=== PATIENT | male | born 1975 | race Caucasian/White ===

== ENCOUNTER 2017-09-05 16:02 | Emergency (ER) | payer SELFPAY ==
[2017-09-05 16:25] VITALS: BP 144/93; PULSE 71; TEMP 98.8; BMI 34.7
--- NOTE | 2017-09-05 16:40 | PDOC ---
History of Present Illness - History of Present Illness Initial Comments: 09/05/17 16:57 42 yo M with no significant pmh who presents with R testicular pain. Patient reports 1 week of worsening, sharp, non radiating, right testicular pain. Worse with movement. Denies back pain, flank pain, dsyuria, hematuria, urinary complaints, urethral discharge, fevers/chills, N/V, abdominal pain. Denies CP, SOB, diarrhea, consitpation Denies testicular trauma. Currently sexually active with . Denies h/o STIs. <Gustavo Singleton - Last Filed: 09/05/17 18:38> <Oliva Caraballo - Last Filed: 09/05/17 19:43> - General Chief Complaint: Pain, Acute Stated Complaint: ABD PAIN Time Seen by Provider: 09/05/17 16:34 Past History - Past Medical History COPD: No - Immunization History Immunization Up to Date: Yes - Suicide/Smoking/Psychosocial Hx Smoking History: Never smoked Have you smoked in the past 12 months: No Information on smoking cessation initiated: No Hx Alcohol Use: No Drug/Substance Use Hx: No Substance Use Type: None <ManiGustavo - Last Filed: 09/05/17 18:38> <Oliva Caraballo - Last Filed: 09/05/17 19:43> - Past Medical History Allergies/Adverse Reactions: Allergies Allergy/AdvReac Type Severity Reaction Status Date / Time No Known Allergies Allergy Verified 09/05/17 16:12 Home Medications: Ambulatory Orders Sulfamethoxazole/Trimethoprim [Bactrim Ds Tablet] 1 each PO BID #14 tablet 09/05 Review of Systems - Review of Systems Comments:: 09/05/17 16:35 GENERAL/CONSTITUTIONAL: No fever or chills. No weakness. HEAD, EYES, EARS, NOSE AND THROAT: No change in vision. No ear pain or discharge. No sore throat.- CARDIOVASCULAR: No chest pain or shortness of breath RESPIRATORY: No cough, wheezing, or hemoptysis. GASTROINTESTINAL: No nausea, vomiting, diarrhea or constipation. GENITOURINARY: + Testicular pain. No dysuria, frequency, or change in urination. MUSCULOSKELETAL: No joint or muscle swelling or pain. No neck or back pain. SKIN: No rash NEUROLOGIC: No headache, vertigo, loss of consciousness, or change in strength/ sensation. ENDOCRINE: No increased thirst. No abnormal weight change HEMATOLOGIC/LYMPHATIC: No anemia, easy bleeding, or history of blood clots. ALLERGIC/IMMUNOLOGIC: No hives or skin allergy. <Gustavo Singleton - Last Filed: 09/05/17 18:38> *Physical Exam - Vital Signs Last Vital Signs Temp Pulse Resp BP Pulse Ox 98.8 F 71 17 144/93 96 09/05/17 16:12 09/05/17 16:12 09/05/17 16:12 09/05/17 16:12 09/05/17 16:12 - Physical Exam Comments: 09/05/17 16:35 GENERAL: Awake, alert, and fully oriented, in no acute distress HEAD: No signs of trauma, normocephalic, atraumatic EYES: PERRLA, EOMI, sclera anicteric, conjunctiva clear ENT: Hearing grossly normal, nares patent, oropharynx clear without exudates. Moist mucosa NECK: Normal ROM, no JVD, or masses LUNGS: No distress, speaks full sentences, clear to auscultation bilaterally HEART: Regular rate and rhythm, normal S1 and S2, no murmurs, rubs or gallops, peripheral pulses normal and equal bilaterally. ABDOMEN: Soft, nontender, normoactive bowel sounds. No guarding, no rebound. No masses. Neg CVA ttp. Neg suprpaubic ttp. : Right sided testicular ttp. Slight epidydmal ttp. Neg edema, erythema, warmth. Neg signs of necrosis or perianal involvement. Neg lesions, skin changes. Adequate cremasteric reflex. Neg bulging with cough/valsalva through inguinal canal. EXTREMITIES : Normal inspection, Normal range of motion, no edema. No clubbing or cyanosis. SKIN: Warm, Dry, normal turgor, no rashes or lesions noted. <Gustavo Singleton - Last Filed: 09/05/17 18:38> - Vital Signs Last Vital Signs Temp Pulse Resp BP Pulse Ox 98.8 F 71 17 144/93 96 09/05/17 16:12 09/05/17 16:12 09/05/17 16:12 09/05/17 16:12 09/05/17 16:12 <Oliva Caraballo - Last Filed: 09/05/17 19:43> ED Treatment Course - ADDITIONAL ORDERS Additional order review: Laboratory Results 09/05/17 17:37 Urine Color Kim Urine Appearance Turbid Urine pH 7.0 Ur Specific Kerrick 1.018 Urine Protein 1+ H Urine Glucose (UA) Negative Urine Ketones Negative Urine Blood 1+ H Urine Nitrite Negative Urine Bilirubin Negative Urine Urobilinogen 4.0 e.u/dl Ur Leukocyte Esterase Negative Urine WBC (Auto) 39 Urine RBC (Auto) 6 Urine Bacteria Rare Urine Mucus Rare - Medications Given in the ED: ED Medications Discontinued Medications Generic Name Dose Route Start Last Admin Trade Name Ligia PRN Reason Stop Dose Admin Acetaminophen 1,000 mg 09/05/17 16:57 09/05/17 17:27 Tylenol - PO 09/05/17 16:58 1,000 mg ONCE ONE Administration Ibuprofen 600 mg 09/05/17 16:57 09/05/17 17:27 Motrin - PO 09/05/17 16:58 600 mg ONCE ONE Administration <Oliva Caraballo - Last Filed: 09/05/17 19:43> Medical Decision Making - Medical Decision Making 09/05/17 17:06 42 yo M with no significant pmh who presents with 1 week of worsening, sharp, stable, non radiating, right testicular pain. Worse with movement and touch. Denies back pain, flank pain, dsyuria, hematuria, urinary complaints, urethral discharge, fevers/chills, N/V, abdominal pain. Denies CP, SOB, diarrhea, constipation Denies testicular trauma. Currently sexually active with . Denies h/o STIs. Hemodynamically stable. Physical exam noteable for right sided testicular ttpw /slight epidydmal ttp. Neg edema, erythema, warmth. Neg urethral discharge. Neg signs of necrosis or perianal involvement. Neg lesions, skin changes. Adequate cremasteric reflex. Neg bulging with cough/valsalva through inguinal canal. Will obtain scrotal U/S to evaluate for testicular torsion vs epidydimits vs. orchitis. Less likely renal colic asx. pain with inguinal radiation. No urinary complaints, flank pain, N/V, or abdominal pain to indicate nephrolithiasis. ED Course: Testicular doppler U/S Ibuprofen, Tylenol UA 09/05/17 19:07 Ultrasound Scrotal Doppler: BL Hydroceles with no evidence of torsion. UA: Negative Patient stable and ready for d/c with return precautions. <Gustavo Singleton - Last Filed: 09/05/17 18:38> *DC/Admit/Observation/Transfer - Discharge Dispostion Admit: No - Attestations Physician Attestion: 09/05/17 18:37 I attest to the documentation provided in this note. <Gustavo Singleton - Last Filed: 09/05/17 18:38> <Oliva Caraballo - Last Filed: 09/05/17 19:43> Diagnosis at time of Disposition: Hydrocele in adult - Discharge Dispostion Disposition: HOME Condition at time of disposition: Stable - Prescriptions Prescriptions: Sulfamethoxazole/Trimethoprim [Bactrim Ds Tablet] 1 each PO BID #14 tablet - Referrals Referrals: Ethan Moura MD [Staff Physician] - Roberto Elizabeth MD [Staff Physician] - - Patient Instructions Printed Discharge Instructions: DI for Hydrocele-Adult Additional Instructions: Please return to the emergency department with any new or worsening symptoms or concerns. Please follow up with your primary care physician within one week. Print Language: DIVEHI
[2017-09-05] MEDS ORDERED: ACETAMINOPHEN 500 MG TABLET (FP) PO ONE (16:57)
[2017-09-05] MEDS ORDERED: IBUPROFEN 600 MG TABLET (FP) PO ONE ×2 (16:57→17:11)
[2017-09-05] MEDS ORDERED: ACETAMINOPHEN 325 MG TABLET (FP) ONE (17:11)
[2017-09-05 17:27] LABS: URINE APPEARANCE TURBID; URINE BILIRUBIN NEGATIVE (NEGATIVE); URINE BLOOD 1+ (NEGATIVE); URINE COLOR AMBER; URINE GLUCOSE (UA) NEGATIVE (NEGATIVE); URINE KETONE NEGATIVE (NEGATIVE); URINE LEUK ESTERASE NEGATIVE (NEGATIVE); URINE NITRITE NEGATIVE (NEGATIVE); URINE UROBILINOGEN 4.0 E.U/dl mg/dL (0.2-1.0)
[2017-09-05 17:44] LABS: URINE PROTEIN 1+ (NEGATIVE)
--- NOTE | 2017-09-05 17:44 | PDOC ---
Attending Attestation - HPI HPI: 09/05/17 19:16 The patient is a 42 year old male with no significant past medical history who presents to the ED with complaints of 1 week of nonradiating right sided testicular pain. The patient reports sharp and shooting pain to his right testicle. He states his testicular pain is worsened with touch. Denies worsening with movement. Denies recent testicular trauma. Denies dysuria or changes in urinary output. Denies flank pain or abdominal pain. Denies nausea, vomiting, or diarrhea. - Physicial Exam PE: 09/05/17 19:16 GENERAL: Awake, alert, and fully oriented, in no acute distress HEAD: No signs of trauma EYES: PERRLA, EOMI, sclera anicteric, conjunctiva clear ENT: Auricles normal inspection, hearing grossly normal, nares patent, oropharynx clear without exudates. Moist mucosa NECK: Normal ROM, supple, no lymphadenopathy, JVD, or masses LUNGS: Breath sounds equal, clear to auscultation bilaterally. No wheezes, and no crackles HEART: Regular rate and rhythm, normal S1 and S2, no murmurs, rubs or gallops ABDOMEN: Soft, nontender, normoactive bowel sounds. No guarding, no rebound. No masses with bearing down or coughing : +R testicular diffuse ttp, no erythema, no swelling, normal lie, with normal cremasteric reflex, L testicle within normal limits. EXTREMITIES: Normal range of motion, no edema. No clubbing or cyanosis. No cords, erythema, or tenderness BACK: No midline spinal tenderness in cervical/thoracic/lumbar region NEUROLOGICAL: Normal speech, cranial nerves intact, negative pronator drift, 5/ 5 strength in all 4 extremities, normal sensation to light touch in all 4 extremities, normal cerebellar exam, normal gait, normal reflexes and tone SKIN: Warm, Dry, normal turgor, no rashes or lesions noted. <Lauryn Tidwell - Last Filed: 09/05/17 19:16> - Resident Resident Name: Gustavo Singleton - ED Attending Attestation I have performed the following: I have examined & evaluated the patient, The case was reviewed & discussed with the resident, I agree w/resident's findings & plan, Exceptions are as noted - Medical Decision Making 09/05/17 19:39 42-year-old male presents with right testicular pain for 1 week with no associated symptoms. When questioned alone patient reports sexual intercourse with only has . Vitals unremarkable. Exam with diffuse testicular tenderness palpation. Scrotal ultrasound with bilateral hydrocele and no other acute pathology. Urinalysis with 39 white cells and rare bacteria. Urine GC/CT pending. Will treat as UTI and discharge with primary doctor and urology follow- up. I discussed the physical exam findings, ancillary test results and final diagnoses with the patient. I answered all of the patient's questions. The patient was satisfied with the care received and felt comfortable with the discharge plan and treatment plan. The patient will call their primary care physician within 24 hours to arrange follow-up and will return to the Emergency Department with any new, persistent or worsening symptoms. <Bakari Mcnamara - Last Filed: 09/05/17 19:42>
[2017-09-05 17:45] LABS: URINE BACTERIA RARE /hpf (NONE SEEN); URINE MUCUS RARE
== END 2017-09-05 20:07 | disposition home or self-care (01) ==
LOC: JER 16:02
DX: N43.2 Other hydrocele (principal)
CPT/HCPCS: 36415; 76870-TC; 81003; 81015; 87086; 87491; 87591; 99282-25

== ENCOUNTER 2017-11-04 11:21 | Emergency (ER) | payer OTHER ==
[2017-11-04 11:25] VITALS: BMI 30.5
--- NOTE | 2017-11-04 11:53 | PDOC ---
History of Present Illness <Janet Encarnacion - Last Filed: 11/04/17 16:59> - General History Source: Patient, Family Exam Limitations: No Limitations - History of Present Illness Initial Comments: 11/04/17 11:55 The patient is a 42 year old male, with no significant past medical history, who presents to the ED with complaints of 2.5 months of nonradiating right sided testicular pain. The patient reports sharp and shooting pain to his right testicle. He denies any alleviating or exacerbating factors. Denies recent testicular trauma. However, patient reports his symptoms began after lifting a heavy refrigerator. Patient reports multiple visits to the ER with recurrent testicular pain, for which he had an US on 09/06/17, which showed slightly prominent vascular flow in left testicle, relative to right and small/minimal bilateral hydrocele. He denies any testicular swelling, penile discharge, bleeding, dysuria, frequency, urgency, nausea, vomiting, erythema, fever, or chills. Patient reports he has followed up with Urology, Dr. Jones, who reported patient may need surgery, but unable to obtain at the moment due to insurance. Allergies: NKDA Past Surgical History: None reported Social History: Non smoker. No ETOH or recreational drug use. Urologist: Dr. Jones <Delphine Oakes - Last Filed: 11/04/17 17:43> - General Chief Complaint: Pain Stated Complaint: GENITAL PAIN Time Seen by Provider: 11/04/17 11:41 Past History - Past Medical History COPD: No - Immunization History Immunization Up to Date: Yes - Suicide/Smoking/Psychosocial Hx Smoking History: Never smoked Have you smoked in the past 12 months: No Hx Alcohol Use: No Drug/Substance Use Hx: No Substance Use Type: None <Janet Encarnacion - Last Filed: 11/04/17 16:59> <Delphine Oakes - Last Filed: 11/04/17 17:43> - Past Medical History Allergies/Adverse Reactions: Allergies Allergy/AdvReac Type Severity Reaction Status Date / Time No Known Allergies Allergy Verified 11/04/17 11:24 Home Medications: Ambulatory Orders Oxycodone HCl/Acetaminophen [Percocet 5-325 mg Tablet -] 1 tab PO TID PRN #12 tablet MDD 3 11/04/17 Review of Systems - Review of Systems Able to Perform ROS?: Yes Comments:: 11/04/17 11:56 GENERAL/CONSTITUTIONAL: No: fever, chills, weakness, loss of appetite. HEAD, EYES, EARS, NOSE AND THROAT: No: change in vision, ear pain, discharge, sore throat, throat swelling. CARDIOVASCULAR: No: chest pain, lightheadedness, palpitations, syncope RESPIRATORY: No: cough, shortness of breath, wheezing, hemoptysis, stridor. GASTROINTESTINAL: No: nausea, vomiting, abdominal cramping, diarrhea, rectal bleeding, constipation. GENITOURINARY: Yes: right testicular swelling and pain. No: dysuria, hematuria, frequency, urgency, flank pain. MUSCULOSKELETAL: No: back pain, neck pain, joint pain, muscle swelling or pain SKIN AND BREASTS: No: lesions, pallor, rash or easy bruising. NEUROLOGIC: No: headache, vertigo, paresthesias, weakness ENDOCRINE: No: unexplained weight gain or loss HEMATOLOGIC/LYMPHATIC: No: anemia, easy bleeding, swelling nodes <Oakes,Giomilsy - Last Filed: 11/04/17 17:43> *Physical Exam - Vital Signs Last Vital Signs Temp Pulse Resp BP Pulse Ox 99.0 F 85 18 146/95 99 11/04/17 11:21 11/04/17 11:21 11/04/17 11:21 11/04/17 11:21 11/04/17 11:21 <Janet Encarnacion - Last Filed: 11/04/17 16:59> - Vital Signs Last Vital Signs Temp Pulse Resp BP Pulse Ox 99.0 F 85 18 146/95 99 11/04/17 11:21 11/04/17 11:21 11/04/17 11:21 11/04/17 11:21 11/04/17 11:21 - Physical Exam Comments: 11/04/17 11:56 GENERAL: The patient is in no acute distress. HEAD: Normal with no signs of trauma. EYES: PERRLA, EOMI, sclera anicteric, conjunctiva clear. ENT: Ears normal, nares patent, oropharynx clear without exudates. Moist mucous membranes. NECK: Normal range of motion, supple without lymphadenopathy, JVD, or masses. LUNGS: Breath sounds equal, clear to auscultation bilaterally. No wheezes, and no crackles. HEART:Regular rate and rhythm, normal S1 and S2 without murmur, rub or gallop. ABDOMEN: Soft, nontender, normoactive bowel sounds. No guarding, no rebound. EXTREMITIES: Normal range of motion, no edema. No clubbing or cyanosis. No erythema, or tenderness. NEUROLOGICAL: Cranial nerves II through XII grossly intact. Normal speech. No focal neurological deficits. MUSCULOSKELETAL: Back non-tender to palpation, no CVA tenderness SKIN: Warm, Dry, normal turgor, no rashes or lesions noted. <Delphine Oakes - Last Filed: 11/04/17 17:43> ED Treatment Course - RADIOLOGY Radiograph Interpretation: 11/04/17 14:49 EXAM: US Scrotum and contents INTERPRETED BY: Dr. Bruce REVIEWED BY: Dr. Encarnacion IMPRESSION: Bilateral varicoceles. Small left-sided hydrocele. EXAM: CT Abdomen and Pelvis INTERPRETED BY: Dr. Bruce REVIEWED BY: Dr. Encarnacion IMPRESSION: No CT findings of acute pathology are identified. Hepatic cirrhosis is noted. Minimal splenomegaly. Probable varices within the gastrihepatic ligament <Delphine Oakes - Last Filed: 11/04/17 17:43> Medical Decision Making - Medical Decision Making 11/04/17 16:59 Mr. Barnes is a 42-year-old male presented to emergency department due to severe testicular pain. Patient symptoms have been present for at least 6 weeks. He's noted right testicular pain as well as swelling. No fevers, chills. He was seen in emergency department, now 3 times for his symptoms. He is now status post 2 ultrasounds. He was asked to follow up with urology. Given his insurance he was unable to do so. Patient initially said he had no trauma to the area. However he states that prior to this occurring he attempted to lift heavy refrigerator. One week later he noticed his symptoms. She denies sexual transmitted disease, discharge. No direct trauma to the area. Examination: Testicular tenderness. No swelling. No erythema. No perineal tenderness to palpation. No discharge. Uncircumcised penis. No inguinal Hernia palpated UA Scrotal US Re assess Call placed to No response CT performed (+) cirrhosis No other findings Will discharge to home Clinical impression: groin strain, initial presentation <Janet Encarnacion - Last Filed: 11/04/17 16:59> - Medical Decision Making 11/04/17 14:49 First call placed to Dr. Jones at 14:48. Dr. Gordon remediation project engineer. Page overhead to Dr. Morales at 14:49. <Delphine Oakes - Last Filed: 11/04/17 17:43> *DC/Admit/Observation/Transfer - Discharge Dispostion Admit: No <Janet Encarnacion - Last Filed: 11/04/17 16:59> - Attestations Scribe Attestion: 11/04/17 11:56 Documentation prepared by Delphine Oakes, acting as medical records library professor for Janet Encarnacion MD. <Delphine Oakes - Last Filed: 11/04/17 17:43> Diagnosis at time of Disposition: Strain of groin Qualifiers: Encounter type: subsequent encounter Laterality: right Qualified Code(s): S76.211D - Strain of adductor muscle, fascia and tendon of right thigh, subsequent encounter - Discharge Dispostion Disposition: HOME Condition at time of disposition: Stable - Prescriptions Prescriptions: Oxycodone HCl/Acetaminophen [Percocet 5-325 mg Tablet -] 1 tab PO TID PRN #12 tablet MDD 3 PRN Reason: Severe Pain - Referrals Referrals: Deborah Aguilar MD [Staff Physician] - - Patient Instructions Printed Discharge Instructions: DI for Groin Strain, DI for Musculoskeletal Pain Additional Instructions: Mr Barnes Amanda por venir a la sergio de emergencia hoy Por favor tome los medicamentos segn lo prescrito Por favor, siga con [facility] pronto dana sea posible Por favor, tambin isabel un seguimiento con el urlogo Por favor regrese a la sergio de emergencias por cualquier otra inquietud o queja Thank you for coming in to the ER today Please take medications as prescribed Please follow up with [facility] as soon as possible Please also follow up with the Urologist Please return to the ER for any other concerns or complaint
[2017-11-04] MEDS ORDERED: IBUPROFEN 600 MG TABLET (FP) PO ONE ×2 (12:40→12:49)
[2017-11-04 14:55] VITALS: TEMP 98
[2017-11-04 17:57] VITALS: BP 130/74; PULSE 81
== END 2017-11-04 17:57 | disposition home or self-care (01) ==
LOC: JER 11:21
DX: S76.211D Strain of adductor muscle, fascia and tendon of right thigh, subsequent encounter (principal); X58.XXXD Exposure to other specified factors, subsequent encounter; Y93.89 Activity, other specified; Y92.9 Unspecified place or not applicable
CPT/HCPCS: 74176-TC; 76870-TC; 99284-25